=== PATIENT | female | born 1995 | race African-American/Black ===

== ENCOUNTER 2017-05-15 18:19 | Emergency (ER) | payer SELFPAY ==
[2017-05-15] MEDS: AUGMENTIN 875 MG TAB PO (22:01)
== END 2017-05-15 22:04 | disposition home or self-care (01) ==
LOC: M ED 18:19
DX: J02.9 Acute pharyngitis, unspecified (principal); J32.9 Chronic sinusitis, unspecified; R11.10 Vomiting, unspecified; Z72.0 Tobacco use
CPT/HCPCS: 99284